=== PATIENT | female | born 1950 | race Caucasian/White ===

== ENCOUNTER → 2021-02-13 | Day surgery (SDC) | payer MEDICARE, BC ==
[~2021-02-13] MED LIST: Midazolam 1 MG/ML 2 ML SDV ONE; Propofol 200 MG/20 ML SDV ONE; Sodium Chloride 0.9% 1,000 ML IV SCH; fentaNYL 100 MCG/2 ML SDV ONE
[2021-02-13 11:51] VITALS: BP 115/73; PULSE 71
--- NOTE | 2021-02-13 16:57 | OR ---
DATE OF PROCEDURE: 02/13/2021 SURGEON: Sigifredo Scott MD PROCEDURES: 1. Esophagogastroduodenoscopy. 2. Colonoscopy. FINDINGS: 1. Mild inflammation of the GE junction concerning for reflux disease (biopsied in all 4 quadrants using cold biopsy forceps). 2. Normal colonoscopy. COMPLICATIONS: None. SUPERINTENDENT QUARRY: None. ANESTHESIA: MAC. PREOPERATIVE DIAGNOSIS: Screening colonoscopy. POSTOPERATIVE DIAGNOSIS: Screening colonoscopy. RISKS: Risks, benefits, alternatives, and limitations including, but not limited to infection, bleeding, perforation, false positives, false negatives were explained to the patient who wished to proceed. PROCEDURE IN DETAIL: The patient was placed in left lateral decubitus position. Esophagogastroduodenoscopy scope was introduced and advanced atraumatically to the second part of the duodenum. No evidence of duodenitis or ulceration. Within the stomach itself, there was no gastritis. No ulcers. No abnormalities on retroflexion. No hiatal hernia. The patient had a small less than 1 cm tongue-like protrusion of salmon-colored tissue concerning for reflux. This was biopsied using cold biopsy forceps, and the other 3 quadrants. The remaining esophagus was inspected without abnormality. Digital rectal exam was performed next. Scope was introduced and advanced atraumatically to the ileocecal valve. A photo was taken of the appendiceal orifice. Scope was brought back to the ascending, transverse, descending colon, and retroflexed. No diverticulosis. No old or new blood. No polyps. No masses. No colitis. No abnormalities on retroflexion. Greater than 8 minutes was spent removing the scope. Greater than 90% of the luminal surface could be seen. The patient tolerated the procedure well. Due to family history, recommend repeat colonoscopy in 5 years. We will have the patient follow up at the virtual visit with respect to dysphagia. Sigifredo Scott MD /[id number]
== END ==
LOC: JP.SDS 07:24
PROVIDERS: ATTEND Surgery
DX: Z12.11 Encounter for screening for malignant neoplasm of colon (principal); K21.9 Gastro-esophageal reflux disease without esophagitis; E03.9 Hypothyroidism, unspecified; Z86.010 Personal history of colon polyps
CPT/HCPCS: 43239; 88305; G0105; J2250; J2704; J3010; J7030